=== PATIENT | female | born 1950 | race Caucasian/White ===

== ENCOUNTER 2017-03-13 16:21 | Emergency (ER) | payer MEDICARE, OTHER ==
[~2017-03-13] VITALS: Ht 152.4 cm; Wt 63.0 kg
[2017-03-13 16:25] VITALS: BP 127/78
[2017-03-13] MEDS ORDERED: NACL 0.9% 1,000 ML IV SCH (16:27)
[2017-03-13] MEDS ORDERED: ONDANSETRON 4 MG/2 ML VIAL IVP ONE (16:30)
--- NOTE | 2017-03-13 16:30 | NUR ---
PT TAKEN TO BED 7.
--- NOTE | 2017-03-13 16:31 | NUR ---
66/F BIB C/O HEADACHE & DIZZINESS X1 DAY. HX DM, HYPERLIPIDEMIA. PT DENIES N/V/D; SKIN IS PINK/WARM/DRY; AAOX4 WITH EVEN AND STEADY GAIT; LUNGS CLEAR BL; HR EVEN AND REGULAR; PT DENIES ANY FEVER, CP, SOB, OR COUGH AT THIS TIME; PATIENT STATES PAIN OF 8/10 AT THIS TIME; VSS; PATIENT POSITIONED FOR COMFORT; HOB ELEVATED; BEDRAILS UP X2; BED DOWN. ER MD MADE AWARE OF PT STATUS.
--- NOTE | 2017-03-13 16:32 | NUR ---
Patient being evaluated by physician at bedside.
--- NOTE | 2017-03-13 16:40 | NUR ---
X-Ray at bedside.
[2017-03-13] MEDS ORDERED: MECLIZINE 25 MG TAB PO ONE (17:20)
--- NOTE | 2017-03-13 18:20 | NUR ---
Patient discharged with v/s stable. Written and verbal after care instructions given and explained. Patient alert, oriented and verbalized understanding of instructions. Ambulatory with steady gait. All questions addressed prior to discharge. ID band removed. Patient advised to follow up with PMD. Rx of TYLENOL & ANTIVERT given. Patient educated on indication of medication including possible reaction and side effects. Opportunity to ask questions provided and answered.
[2017-03-13 18:29] VITALS: BP 129/65
== END 2017-03-13 18:20 | disposition home or self-care (01) ==
LOC: MED 16:21
DX: R42 Dizziness and giddiness (principal); G44.209 Tension-type headache, unspecified, not intractable
CPT/HCPCS: 36415; 71010; 80053; 82150; 82553; 83690; 83880; 84484; 85025; 85610; 85730; 93005; 96361; 96374; 99285; J2405; J7030; J8597; Q0092

== ENCOUNTER 2024-02-20 17:35 | Emergency (ER) | payer OTHER ==
[~2024-02-20] VITALS: Ht 152.4 cm; Wt 57.6 kg
[2024-02-20 17:38] VITALS: BP 136/114; PULSE 77; RESP 18; TEMP 98.4; O2SAT 97
[2024-02-20] MEDS ORDERED: KETOROLAC 60 MG/2 ML VIAL IM ONE (18:20)
== END 2024-02-20 19:07 | disposition left against medical advice (07) ==
LOC: MED 17:35
DX: M25.512 Pain in left shoulder (principal); Z53.21 Procedure and treatment not carried out due to patient leaving prior to being seen by health care provider
CPT/HCPCS: 99281; J1885